=== PATIENT | female | born 1995 | race Caucasian/White ===

== ENCOUNTER 2021-04-12 03:40 | Emergency (ER) | payer OTHER ==
[2021-04-12 04:03] VITALS: BP 130/78; PULSE 94; TEMP 98.1; BMI 24.5
[2021-04-12] MEDS ORDERED: KETOROLAC TROMETHAMINE 30 MG/1 ML VIAL IM ONE (04:04)
[2021-04-12] MEDS ORDERED: AZITHROMYCIN 500 MG TABLET PO ONE (04:05)
[2021-04-12] MEDS ORDERED: AZITHROMYCIN 250 MG TABLET ONE (04:05)
[2021-04-12] MEDS ORDERED: KETOROLAC TROMETHAMINE 30 MG/1 ML VIAL ONE (04:06)
[2021-04-12 05:33] LABS: EPI CELLS >36 /uL (0-25.1); HYALINE CASTS 2 /uL (0-3.1); PH,URINE 6.5 (5.0-8.0); URINE APPEARANCE CLEAR; URINE BACTERIA 526 /uL (0-1359); URINE BILIRUBIN NEGATIVE (NEGATIVE); URINE COLOR YELLOW; URINE GLUCOSE (UA) NEGATIVE (NEGATIVE); URINE KETONE NEGATIVE (NEGATIVE); URINE LEUK ESTERASE TRACE (NEGATIVE); URINE NITRITE NEGATIVE (NEGATIVE); URINE PROTEIN NEGATIVE (NEGATIVE); URINE RBC 14 /uL (0-23.9); URINE WBC 70 /uL (0-25.8)
== END 2021-04-12 05:42 | disposition home or self-care (01) ==
LOC: FER 03:40
PROC: 3E0233Z Introduction of Anti-inflammatory into Muscle, Percutaneous Approach (ICD-10-PCS; principal; 2021-04-12)
PROC: 3E02329 Introduction of Other Anti-infective into Muscle, Percutaneous Approach (ICD-10-PCS; 2021-04-12)
DX: R10.2 Pelvic and perineal pain (principal)
CPT/HCPCS: 36415; 76830-TC; 81003; 81025; 87086; 87491; 87591; 99284-25